=== PATIENT | male | born 1940 | race Caucasian/White ===

== ENCOUNTER 2021-10-29 08:41 | Day surgery (SDC) | payer OTHER, BC ==
[2021-10-22 10:42] VITALS: BMI 37.8
[~2021-10-29 08:41] MED LIST: KETOROLAC TROMETHAMINE 0.5% EYE DROP 1 DROP DROPS OS SCH; OFLOXACIN 0.3% OPHTHALMIC SOLUTION 5 ML BOTTLE OS SCH; PHENYLEPHRINE 2.5% OPHTH SOLN 15 ML BOTTLE OS SCH; TROPICAMIDE 1% OPHTH SOLN 15 ML BOTTLE OS SCH
[2021-10-29] MEDS ORDERED: KETOROLAC TROMETHAMINE 0.5% EYE DROP 1 DROP DROPS ONE (09:13)
[2021-10-29] MEDS ORDERED: PHENYLEPHRINE 2.5% OPHTH SOLN 15 ML BOTTLE ONE (09:13)
[2021-10-29] MEDS ORDERED: CYCLOPENTOLATE HCL 1% OPHTH SOLN 2 ML BOTTLE ONE (09:13)
[2021-10-29] MEDS ORDERED: OFLOXACIN 0.3% OPHTHALMIC SOLUTION 5 ML BOTTLE ONE (09:13)
[2021-10-29] MEDS ORDERED: TROPICAMIDE 1% OPHTH SOLN 15 ML BOTTLE ONE (09:13)
[2021-10-29] MEDS: CYCLOPENTOLATE HCL 1% OPHTH SOLN 2 ML BOTTLE OS SCH ×2 (09:25→09:35)
[2021-10-29] MEDS ORDERED: CYCLOPENTOLATE HCL 1% OPHTH SOLN 2 ML BOTTLE OS ONE (09:30)
[2021-10-29] MEDS ORDERED: OFLOXACIN 0.3% OPHTHALMIC SOLUTION 5 ML BOTTLE OS ONE ×2 (09:30→09:35)
[2021-10-29] MEDS ORDERED: KETOROLAC TROMETHAMINE 0.5% EYE DROP 1 DROP DROPS OS ONE ×2 (09:30→09:35)
[2021-10-29] MEDS ORDERED: TROPICAMIDE 1% OPHTH SOLN 15 ML BOTTLE OS ONE ×2 (09:30→09:35)
[2021-10-29] MEDS ORDERED: PHENYLEPHRINE 2.5% OPHTH SOLN 15 ML BOTTLE OS ONE ×2 (09:30→09:35)
[2021-10-29] MEDS ORDERED: POVIDONE-IODINE 5% OPHTHALMIC PREP 30 ML SOLUTION ONE (10:09)
[2021-10-29] MEDS ORDERED: BETAXOLOL HCL 0.25% OPHTHALMIC 10 ML DROPSBTL ONE (10:09)
[2021-10-29] MEDS ORDERED: BACITRACIN/POLYMYXIN OPH OINT 3.5 GM TUBE ONE (10:09)
[2021-10-29] MEDS ORDERED: EPINEPHrine/PF 1 MG/1 ML (1:1,000) AMPULE ONE (10:09)
[2021-10-29] MEDS ORDERED: TETRACAINE 0.5% OPHTH SOLN 2 ML BOTTLE ONE (10:09)
[2021-10-29] MEDS ORDERED: NEO/POLYMYX B SULF/DEXAMETH OPHTHALMIC 5ML BOTTLE ONE (10:09)
[2021-10-29] MEDS ORDERED: EPI-SHUGARCAINE (EPINEPHRINE 0.025% & LIDOCAINE-PF 0.75%) 4ML ONE (10:09)
[2021-10-29] MEDS ORDERED: MIDAZOLAM HCL 2 MG/2 ML SINGLE DOSE VIAL ONE (11:24)
[2021-10-29] MEDS ORDERED: ACETAMINOPHEN 325 MG TABLET (FP) PO PRN (12:00)
[2021-10-29 12:12] VITALS: TEMP 97.8
[2021-10-29 12:45] VITALS: BP 124/71; PULSE 75
== END 2021-10-29 12:46 | disposition home or self-care (01) ==
LOC: FASU 08:41
PROVIDERS: ATTEND Ophthalmology
PROC: 08RK3JZ Replacement of Left Lens with Synthetic Substitute, Percutaneous Approach (ICD-10-PCS; principal; 2021-10-29 11:39)
DX: H25.89 Other age-related cataract (principal)
CPT/HCPCS: 66984; V2632

== ENCOUNTER 2021-11-12 08:22 | Day surgery (SDC) | payer OTHER, BC ==
[2021-10-22 11:00] VITALS: BMI 37.8
[2021-11-12] MEDS ORDERED: KETOROLAC TROMETHAMINE 0.5% EYE DROP 1 DROP DROPS ONE (09:48)
[2021-11-12] MEDS ORDERED: CYCLOPENTOLATE HCL 1% OPHTH SOLN 2 ML BOTTLE ONE (09:48)
[2021-11-12] MEDS ORDERED: TROPICAMIDE 1% OPHTH SOLN 15 ML BOTTLE ONE (09:48)
[2021-11-12] MEDS ORDERED: PHENYLEPHRINE 2.5% OPHTH SOLN 15 ML BOTTLE ONE (09:48)
[2021-11-12] MEDS ORDERED: OFLOXACIN 0.3% OPHTHALMIC SOLUTION 5 ML BOTTLE ONE (09:48)
[2021-11-12 10:02] VITALS: PULSE 74
[2021-11-12] MEDS ORDERED: BACITRACIN/POLYMYXIN OPH OINT 3.5 GM TUBE ONE (10:09)
[2021-11-12] MEDS ORDERED: NEO/POLYMYX B SULF/DEXAMETH OPHTHALMIC 5ML BOTTLE ONE (10:10)
[2021-11-12] MEDS ORDERED: POVIDONE-IODINE 5% OPHTHALMIC PREP 30 ML SOLUTION ONE (10:10)
[2021-11-12] MEDS ORDERED: ACETYLCHOLINE 1:100 INTRA-OCUL 20 MG/2 ML KIT ONE (10:10)
[2021-11-12] MEDS ORDERED: EPI-SHUGARCAINE (EPINEPHRINE 0.025% & LIDOCAINE-PF 0.75%) 4ML ONE (10:10)
[2021-11-12] MEDS ORDERED: BETAXOLOL HCL 0.25% OPHTHALMIC 10 ML DROPSBTL ONE (10:10)
[2021-11-12] MEDS ORDERED: TETRACAINE 0.5% OPHTH SOLN 2 ML BOTTLE ONE (10:10)
[2021-11-12] MEDS: OFLOXACIN 0.3% OPHTHALMIC SOLUTION 5 ML BOTTLE OD SCH ×3 (10:20→10:30)
[2021-11-12] MEDS: TROPICAMIDE 1% OPHTH SOLN 15 ML BOTTLE OD SCH ×3 (10:20→10:30)
[2021-11-12] MEDS: CYCLOPENTOLATE HCL 1% OPHTH SOLN 2 ML BOTTLE OD SCH ×3 (10:20→10:30)
[2021-11-12] MEDS: KETOROLAC TROMETHAMINE 0.5% EYE DROP 1 DROP DROPS OD SCH ×3 (10:20→10:30)
[2021-11-12] MEDS: PHENYLEPHRINE 2.5% OPHTH SOLN 15 ML BOTTLE OD SCH ×3 (10:20→10:30)
[2021-11-12] MEDS ORDERED: MIDAZOLAM HCL 2 MG/2 ML SINGLE DOSE VIAL ONE (11:51)
[2021-11-12] MEDS ORDERED: ACETAMINOPHEN 325 MG TABLET (FP) PO PRN (12:35)
[2021-11-12 12:40] VITALS: BP 117/70; TEMP 97.9
== END 2021-11-12 13:10 | disposition home or self-care (01) ==
LOC: FASU 08:22
PROVIDERS: ATTEND Ophthalmology
PROC: 08RJ3JZ Replacement of Right Lens with Synthetic Substitute, Percutaneous Approach (ICD-10-PCS; principal; 2021-11-12 12:03)
DX: H26.9 Unspecified cataract (principal)
CPT/HCPCS: 66984; V2632

== ENCOUNTER 2023-10-19 05:21 | Inpatient (IN) | payer OTHER, BC ==
[2023-10-19 05:26] VITALS: BMI 36.3
[2023-10-19 06:28] LABS: BASO % 1.3 % (0-2.0); EOS % 15.3 % (0-4.5); HEMATOCRIT 41.3 % (35.4-49); HEMOGLOBIN 13.9 GM/dL (11.7-16.9); LYMPH % 28.2 % (8-40); MCH 29.5 pg (25.7-33.7); MCHC 33.6 g/dl (32.0-35.9); MEAN CELL VOLUME 87.9 fl (80-96); MEAN PLT VOLUME 8.3 fl (7.5-11.1); MONO % 13.9 % (3.8-10.2); NEUT % 41.3 % (42.8-82.8); PLATELET COUNT 185 10^3/uL (134-434); RDW 14.2 % (11.9-15.9); WHITE BLOOD COUNT 6.8 K/mm3 (4.0-10.0)
[2023-10-19 06:52] LABS: CHLORIDE 107 mmol/L (98-107); POTASSIUM 3.5 mmol/L (3.5-5.1); SODIUM 141 mmol/L (136-145)
[2023-10-19 06:54] LABS: ALBUMIN 3.7 g/dl (3.4-5.0); ANION GAP 6 mmol/L (4-13); BLOOD UREA NITROGEN 22.3 mg/dL (7-18); CALCIUM 8.1 mg/dL (8.5-10.1); CO2 28 mmol/L (21-32); GLUCOSE,RANDOM 147 mg/dL (74-106); PROTHROMBIN TIME (PATIENT) 11.5 SEC (9.7-13.0)
[2023-10-19 06:57] LABS: ACTIVATED PTT 28.5 SECONDS (25.2-36.5); CREATININE 0.9 mg/dL (0.55-1.3); SGOT/AST 19 U/L (15-37); SGPT/ALT 25 U/L (13-61)
[2023-10-19 06:59] LABS: BILIRUBIN,TOTAL 1.2 mg/dL (0.2-1); TOT PROT 6.9 g/dl (6.4-8.2)
[2023-10-19 07:00] LABS: ALK PHOS 74 U/L (45-117)
[2023-10-19 09:20] LABS: ERYTHROCYTE SEDIMENTATION RATE 28 mm/hr (0-20)
[2023-10-19] MEDS ORDERED: PATIENT'S OWN MEDICATION (NON-FORMULARY) (Telmisartan/Hydrochlorothiazid [Telmisartan-Hctz PO SCH (10:00)
[2023-10-19] MEDS: LOSARTAN POTASSIUM 50 MG TABLET PO SCH (10:14)
[2023-10-19] MEDS: HYDROCHLOROTHIAZIDE 12.5 MG CAPSULE (FP) PO SCH (10:14)
[2023-10-19] MEDS: INSULIN ASPART SLIDING SCALE (NOVOLOG) 1 VIAL SQ SCH (11:11)
[2023-10-19] MEDS: CEFTRIAXONE 2 GM in DEXTROSE 5%-WATER 100 ML IVPB SCH (12:17)
[2023-10-19 14:47] VITALS: RESP 18
[2023-10-19] MEDS: ROSUVASTATIN CA 20 MG TABLET PO SCH (21:06)
[2023-10-19] MEDS: ACETAMINOPHEN 325 MG TABLET (FP) PO PRN (21:07)
[2023-10-20 09:00] LABS: BASO % 0.8 % (0-2.0); EOS % 15.1 % (0-4.5); HEMATOCRIT 38.9 % (35.4-49); HEMOGLOBIN 13.1 GM/dL (11.7-16.9); LYMPH % 27.3 % (8-40); MCH 29.4 pg (25.7-33.7); MCHC 33.6 g/dl (32.0-35.9); MEAN CELL VOLUME 87.5 fl (80-96); MEAN PLT VOLUME 8.4 fl (7.5-11.1); MONO % 13.5 % (3.8-10.2); NEUT % 43.3 % (42.8-82.8); PLATELET COUNT 167 10^3/uL (134-434); RBC 4.45 M/mm3 (4.00-5.60); RDW 14.5 % (11.9-15.9); WHITE BLOOD COUNT 5.8 K/mm3 (4.0-10.0)
[2023-10-20 09:03] LABS: POTASSIUM 4.1 mmol/L (3.5-5.1)
[2023-10-20 09:12] LABS: ALBUMIN 3.4 g/dl (3.4-5.0); BLOOD UREA NITROGEN 17.7 mg/dL (7-18); MAGNESIUM 2.2 mg/dL (1.8-2.4)
[2023-10-20 09:15] LABS: CREATININE 0.7 mg/dL (0.55-1.3)
[2023-10-20 09:16] LABS: TOT PROT 6.2 g/dl (6.4-8.2)
[2023-10-20] MEDS ORDERED: MIDAZOLAM HCL 2 MG/2 ML SINGLE DOSE VIAL ONE (10:14)
[2023-10-20] MEDS ORDERED: PROPOFOL 20 ML ONE (10:14)
[2023-10-20] MEDS ORDERED: FENTANYL CITRATE/PF 50 MCG/ML VIAL ONE (10:14)
[2023-10-20] MEDS ORDERED: KETOROLAC TROMETHAMINE 30 MG/1 ML VIAL ONE (10:15)
[2023-10-20] MEDS ORDERED: LIDOCAINE HCL 1%, 10 MG/ML (20ML VIAL) ONE (10:17)
[2023-10-20] MEDS ORDERED: GENTAMICIN SO4 80 MG/2 ML VIAL ONE (10:18)
[2023-10-20] MEDS ORDERED: BUPIVACAINE HCL/PF 0.5% (5MG/ML) 10 ML VIAL ONE (10:18)
[2023-10-20] MEDS ORDERED: ONDANSETRON 4 MG/2 ML VIAL IVPUSH PRN ×2 (10:25→11:31)
[2023-10-20] MEDS: BUPIVACAINE HCL/PF 0.5% (5 MG/ML) 30 ML VIAL IJ ONE ×2 (10:40)
[2023-10-20] MEDS: LIDOCAINE HCL 1% PRESERVATIVE FREE - 30ML VIAL IJ ONE ×2 (10:40)
[2023-10-20] MEDS ORDERED: ceFAZolin SODIUM 1 GM VIAL ONE (10:44)
[2023-10-20] MEDS: ceFAZolin SODIUM 1 GM VIAL IVPB ONE ×2 (10:45)
[2023-10-20] MEDS ORDERED: ACETAMINOPHEN 325 MG TABLET (FP) PO PRN (11:31)
[2023-10-20] MEDS: LACTATED RINGERS SOLUTION 1,000 ML IV SCH ×2 (12:41→12:42)
[2023-10-20] MEDS: INSULIN ASPART SLIDING SCALE (NOVOLOG) 1 VIAL SQ SCH (16:30)
[2023-10-20] MEDS: ROSUVASTATIN CA 20 MG TABLET PO SCH (21:14)
[2023-10-21] MEDS: CEFTRIAXONE 2 GM in DEXTROSE 5%-WATER 100 ML IVPB SCH (09:37)
[2023-10-21] MEDS: HYDROCHLOROTHIAZIDE 12.5 MG CAPSULE (FP) PO SCH (09:37)
[2023-10-21] MEDS: LOSARTAN POTASSIUM 50 MG TABLET PO SCH (09:37)
[2023-10-22 14:29] VITALS: BP 133/74; PULSE 62; TEMP 98.5
== END 2023-10-22 18:00 | disposition home or self-care (01) | DRG 617 ==
LOC: JER 05:21 → JERBED 05:57 → J6S 09:21
PROVIDERS: ADMIT Family Medicine; ATTEND Family Medicine
PROC: 0Y6U0Z1 Detachment at Left 3rd Toe, High, Open Approach (ICD-10-PCS; principal; 2023-10-20 09:30)
DX: E11.69 Type 2 diabetes mellitus with other specified complication (principal); L97.528 Non-pressure chronic ulcer of other part of left foot with other specified severity; M86.8X7 Other osteomyelitis, ankle and foot; B95.2 Enterococcus as the cause of diseases classified elsewhere; I10 Essential (primary) hypertension; E78.5 Hyperlipidemia, unspecified; E11.621 Type 2 diabetes mellitus with foot ulcer; E66.9 Obesity, unspecified; Z68.36 Body mass index [BMI] 36.0-36.9, adult
CPT/HCPCS: 36415; 73630-TC-LT; 80053; 82962; 83735; 85025; 85610; 85651; 85730; 86140; 86850; 86900; 86901; 87040; 87070; 87186; 87205; 88305-TC; 88311-TC; 93005; 93010; 94760; 99285-25